=== PATIENT | male | born 1990 | race Caucasian/White ===

== ENCOUNTER 2018-02-22 00:19 | Emergency (ER) | payer SELFPAY ==
[~2018-02-22] VITALS: Ht 181.6 cm; Wt 99.8 kg
[2018-02-22 00:26] VITALS: BP 138/82
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
== END 2018-02-22 00:42 ==
LOC: ERH 00:19
DX: S50.811A Abrasion of right forearm, initial encounter (principal); S50.812A Abrasion of left forearm, initial encounter; Y35.893A Legal intervention involving other specified means, suspect injured, initial encounter; Y93.9 Activity, unspecified